=== PATIENT | female | born 1995 | race Caucasian/White ===

== ENCOUNTER 2024-12-10 16:25 | Emergency (ER) | payer OTHER ==
[~2024-12-10] VITALS: Ht 175.3 cm; Wt 94.8 kg
[2024-12-10 20:01] LABS: BASOPHILS 0.5 % (0-2); EOSINOPHILS 0.9 % (0-6); HEMATOCRIT 36.7 % (35.0-50.0); HEMOGLOBIN 12.8 g/dL (12.0-18.0); MCH 29.8 (27-36); MCHC 34.8 g/dl (30-36); MCV 85.6 fl (81-99); MONOCYTES 7.3 % (0-12); NEUTROPHILS 68.3 % (39-80); PLATELET COUNT 358 K/uL (140-440); RBC 4.29 M/ul (4.3-5.7); RDW 13.2 (10.5-15.0)
[2024-12-10 20:12] LABS: BILIRUBIN, URINE NEGATIVE (negative); BLOOD/HGB, URINE NEGATIVE (Negative); KETONE, URINE NEGATIVE (Negative); LEUK ESTERASE, URINE NEGATIVE (negative); NITRITE, URINE NEGATIVE (negative)
[2024-12-10 20:18] LABS: ALBUMIN/GLOBULIN RATIO 1.08 (1.1-2.4); BILIRUBIN, TOTAL 0.2 mg/dL (0.2-1.0); BUN/CREATININE RATIO 15.53 (6.0-28.6); CALCIUM 8.9 mg/dL (8.5-10.1); CREATININE, SERUM 1.03 mg/dL (0.55-1.02); PROTEIN, TOTAL 7.7 g/dL (6.4-8.2)
[2024-12-10] MEDS ORDERED: TRAMADOL HCL50 MG PO (21:57)
[2024-12-10] MEDS ORDERED: TRAMADOL HCL 50 MG HOME.PACK PO ONE (22:00)
[2024-12-10 22:21] VITALS: BP 98/65
== END 2024-12-10 22:23 | disposition home or self-care (01) ==
LOC: ED 16:25
PROVIDERS: Family Medicine
DX: T83.84XA Pain due to genitourinary prosthetic devices, implants and grafts, initial encounter (principal); Y76.8 Miscellaneous obstetric and gynecological devices associated with adverse incidents, not elsewhere classified
CPT/HCPCS: 36415; 76830; 76856; 80053; 81003; 85025; 99284-25; A9270

== ENCOUNTER 2025-08-04 15:47 | Emergency (ER) | payer OTHER ==
[~2025-08-04] VITALS: Ht 175.3 cm; Wt 93.5 kg
[~2025-08-04 15:47] MED LIST: TRAMADOL HCL50 MG PO
[2025-08-04 16:30] LABS: BASOPHILS 1.1 % (0.1-1.2); EOSINOPHILS 2.2 % (0.7-5.8); LYMPHOCYTES 39.2 % (19.3-51.7); MCH 28.8 PG (25.6-32.2); MCHC 33.3 g/dL (32.2-35.5); MCV 86.4 fL (79.4-94.8); MONOCYTES 7.8 % (4.7-12.5); NEUTROPHILS 49.4 % (34.0-71.1); RBC 4.27 M/uL (3.93-5.22)
[2025-08-04 16:53] LABS: BLOOD/HGB, URINE MODERATE (Negative); KETONE, URINE NEGATIVE (Negative); LEUK ESTERASE, URINE NEGATIVE (negative); NITRITE, URINE NEGATIVE (negative)
[2025-08-04 17:03] LABS: ALT (SGPT) 28.0 U/L (14-59); AST (SGOT) 17.0 U/L (15-37); GLOMERULAR FILTRATION RATE,EST 100.0 mL/min (>60); PROTEIN, TOTAL 7.6 g/dL (6.4-8.2); UREA NITROGEN 12.0 mg/dL (7-18)
[2025-08-04 17:06] LABS: BACTERIA, URINE NONE SEEN /hpf (negative); CASTS, URINE NONE SEEN \\lpf; CRYSTALS, URINE NONE SEEN (0-1+); EPITHELIAL CELLS, URINE 0 /lpf (0-1+); REFLEX CULTURE, URINE No (No)
[2025-08-04 17:35] VITALS: BP 120/58
== END 2025-08-04 17:38 | disposition home or self-care (01) ==
LOC: ED 15:47
PROVIDERS: Emergency Medicine
DX: O20.0 Threatened abortion (principal); Z3A.01 Less than 8 weeks gestation of pregnancy
CPT/HCPCS: 36415; 80053; 81001; 84702; 85025; 99284

== ENCOUNTER 2025-08-22 12:25 | Emergency (ER) | payer OTHER ==
[~2025-08-22] VITALS: Ht 175.3 cm; Wt 94.6 kg
--- OUTSIDE RECORDS SUMMARY | ~2025-08-22 | XMS | Continuity of Care Document ---
Demographics + + + | Address | [address] | | | [place] [address] | + + + | Preferred Language | Unknown | + + + | Marital Status | Never | + + + | Quaker Affiliation | Unknown | + + + | Race | White | + + + | Ethnic Group | or | + + + Author + + + | Author | [facility] | + + + | Organization | [facility] | + + + | Address | [address] | | | [place] [address] | + + + | Phone | | + + + Care Team Providers + + + + | Care Trolley Car Overhauler Name | Role | Phone | + + + + Unavailable | Unavailable | + + + + Unavailable | Unavailable | + + + + Allergies No information. Encounters No information. Functional Status No information. Immunizations No information. Medications No information. Problems + + + + | date | description | facility | + + + + | 2025-08-04 00:00 | Threatened in | [facility] | | | early | [facility] | + + + + Procedures No information. Results/Labs +--------+--------+ +---------+--------+---------+ | test | date | facility | value | unit | notes | +--------+--------+ +---------+--------+---------+ + + | Result panel 1 | + + + + + +--------+ + + | WBC # Bld | 2025-08-04 | | 9.46 | (missing) | (missing) | | Auto | 16:22:08 | [facility] | | | | + + + +--------+ + + + + | Result panel 2 | + + + + + +--------+ + + | Lymphocytes | 2025-08-04 | | 39.2 | (missing) | (missing) | | NFr Bld | 16:22:08 | [facility] | | | | | Auto [facility] | | | | + + + +--------+ + + + + | Result panel 3 | + + + + + +-------+ + + | Monocytes | 2025-08-04 | | 7.8 | (missing) | (missing) | | NFr Bld Auto | 16::08 | [facility] | | | | + + + +-------+ + + + + | Result panel 4 | + + + + + +-------+ + + | Eosinophil | 2025-08-04 | | 2.2 | (missing) | (missing) | | NFr Bld Auto | 16:22:08 | [facility] | | | | + + + +-------+ + + + + | Result panel 5 | + + + + + +-------+ + + | Basophils | 2025-08-04 | | 1.1 | (missing) | (missing) | | NFr Bld Auto | 16:22:08 | [facility] | | | | + + + +-------+ + + + + | Result panel 6 | + + + + + +--------+ + + | RBC # Bld | 2025-08-04 | | 4.27 | (missing) | (missing) | | Auto | 16:22:08 | [facility] | | | | + + + +--------+ + + + + | Result panel 7 | + + + + + +--------+ + + | Hgb | 2025-08-04 | | 12.3 | (missing) | (missing) | | Bld-mCnc | 16:22:08 | [facility] | | | | + + + +--------+ + + + + | Result panel 8 | + + + + + +------+---------+ + | Glucose | 2025-08-04 | | 91 | mg/dL | (missing) | | SerPl-mCnc | 16:22:08 | [facility] | | | | + + + +------+---------+ + + + | Result panel 9 | + + + + + +------+---------+ + | BUN | 2025-08-04 | | 12 | mg/dL | (missing) | | Iftikhar | 16:22:08 | [facility] | | | | + + + +------+---------+ + + + | Result panel 10 | + + + + + +--------+---------+ + | Creat | 2025-08-04 | | 0.82 | mg/dL | (missing) | | SerPl-mCnc | 16:22:08 | [facility] | | | | + + + +--------+---------+ + + + | Result panel 11 | + + + + + +-------+ + + | eGFRcr | 2025-08-04 | | 100 | (missing) | (missing) | | SerPlBld | 16:22:08 | [facility] | | | | | CKD-EPI 2020 | [facility] | | | | + + + +-------+ + + + + | Result panel 12 | + + + + + +---------+ + + | BUN/Creat | 2025-08-04 | | 14.63 | (missing) | (missing) | | SerPl | 16:22:08 | [facility] | | | | + + + +---------+ + + + + | Result panel 13 | + + + + + +-------+ + + | Sodium | 2025-08-04 | | 142 | (missing) | (missing) | | SerPl-sCnc | 16::08 | [facility] | | | | + + + +-------+ + + + + | Result panel 14 | + + + + + +--------+ + + | Hct VFr.DF | 2025-08-04 | | 36.9 | (missing) | (missing) | | Bld Auto | 16:22:08 | [facility] | | | | + + + +--------+ + + + + | Result panel 15 | + + + + + +-------+ + + | Potassium | 2025-08-04 | | 3.8 | (missing) | (missing) | | SerPl-sCnc | 16:22:08 | [facility] | | | | + + + +-------+ + + + + | Result panel 16 | + + + + + +-------+ + + | Chloride | 2025-08-04 | | 105 | (missing) | (missing) | | SerPl-sCnc | 16:22:08 | [facility] | | | | + + + +-------+ + + + + | Result panel 17 | + + + + + +------+ + + | CO2 | 2025-08-04 | | 29 | (missing) | (missing) | | SerPl-sCnc | 16:22:08 | [facility] | | | | + + + +------+ + + + + | Result panel 18 | + + + + + +--------+ + + | Anion Gap | 2025-08-04 | | 11.8 | (missing) | (missing) | | SerPl | 16:22:08 | [facility] | | | | | Calculated.4 | [facility] | | | | + + + +--------+ + + + + | Result panel 19 | + + + + + +-------+---------+ + | Calcium | 2025-08-04 | | 8.8 | mg/dL | (missing) | | SerPl-mCnc | 16:22:08 | [facility] | | | | + + + +-------+---------+ + + + | Result panel 20 | + + + + + +-------+ + + | Prot | 2025-08-04 | | 7.6 | (missing) | (missing) | | SerPl-mCnc | 16:22:08 | [facility] | | | | + + + +-------+ + + + + | Result panel 21 | + + + + + +-------+ + + | Albumin | 2025-08-04 | | 3.7 | (missing) | (missing) | | SerPl-mCnc | 16:22:08 | [facility] | | | | + + + +-------+ + + + + | Result panel 22 | + + + + + +-------+ + + | Globulin | 2025-08-04 | | 3.9 | (missing) | (missing) | | Ser-mCnc | 16:22:08 | [facility] | | | | + + + +-------+ + + + + | Result panel 23 | + + + + + +--------+ + + | | 2025-08-04 | | 0.95 | (missing) | (missing) | | Albumin/Glob | 16:22:08 | [facility] | | | | | SerPl | [facility] | | | | + + + +--------+ + + + + | Result panel 24 | + + + + + +-------+---------+ + | Bilirub | 2025-08-04 | | 0.3 | mg/dL | (missing) | | SerPl-mCnc | 16:22:08 | [facility] | | | | + + + +-------+---------+ + + + | Result panel 25 | + + + + + +--------+ + + | RBC Auto | 2025-08-04 | | 86.4 | (missing) | (missing) | | | 16:22:08 | [facility] | | | | + + + +--------+ + + + + | Result panel 26 | + + + + + +------+ + + | AST | 2025-08-04 | | 17 | (missing) | (missing) | | SerPl-cCnc | 16:22:08 | [facility] | | | | + + + +------+ + + + + | Result panel 27 | + + + + + +------+ + + | ALT | 2025-08-04 | | 28 | (missing) | (missing) | | SerPl-[facility] | 16:22:08 | [facility] | | | | + + + +------+ + + + + | Result panel 28 | + + + + + +------+ + + | ALP | 2025-08-04 | | 65 | (missing) | (missing) | | SerPl-cCnc | 16:22:08 | [facility] | | | | + + + +------+ + + + + | Result panel 29 | + + + + + +-----+ + + | HCG | 2025-08-04 | | 8 | (missing) | (missing) | | SerPl-sCnc | 16:22:08 | [facility] | | | | + + + +-----+ + + + + | Result panel 30 | + + + + + +--------+ + + | MCH RBC Qn | 2025-08-04 | | 28.8 | (missing) | (missing) | | Auto | 16::08 | [facility] | | | | + + + +--------+ + + + + | Result panel 31 | + + + + + +--------+ + + | MCHC RBC | 2025-08-04 | | 33.3 | (missing) | (missing) | | Auto-EntMCnc | :08 | [facility] | | | | + + + +--------+ + + + + | Result panel 32 | + + + + + +-------+ + + | Platelet # | 2025-08-04 | | 399 | (missing) | (missing) | | Bld Auto | 16:22:08 | [facility] | | | | + + + +-------+ + + + + | Result panel 33 | + + + + + +--------+ + + | Neutrophils | 2025-08-04 | | 49.4 | (missing) | (missing) | | NFr Bld | 16:22:08 | [facility] | | | | | Auto | [facility] | | | | + + + +--------+ + + + + | Result panel 34 | + + + + + + + + + | Color Ur | 2025-08-04 | | YELLOW | (missing) | (missing) | | Auto | 16:48:08 | [facility] | | | | + + + + + + + + + | Result panel 35 | + + + + + +---------+ + + | Character | 2025-08-04 | | CLEAR | (missing) | (missing) | | Ur | 16:48:08 | [facility] | | | | + + + +---------+ + + + + | Result panel 36 | + + + + + + + + + | Glucose Ur | 2025-08-04 | | NEGATIVE | (missing) | (missing) | | Ql Strip | 16:48:08 | [facility] | | | | + + + + + + + + + | Result panel 37 | + + + + + + + + + | Bilsherryub Ur | 2025-08-04 | | NEGATIVE | (missing) | (missing) | | Ql Strip | 16:48:08 | [facility] | | | | + + + + + + + + + | Result panel 38 | + + + + + + + + + | Ketones Ur | 2025-08-04 | | NEGATIVE | (missing) | (missing) | | Ql Strip | 16:48:08 | [facility] | | | | + + + + + + + + + | Result panel 39 | + + + + + +---------+ + + | Sp Gr Ur | 2025-08-04 | | 1.010 | (missing) | (missing) | | Strip | 16:48:08 | [facility] | | | | + + + +---------+ + + + + | Result panel 40 | + + + + + + + + + | Marleen Dacosta | 2025-08-04 | | MODERATE | (missing) | (missing) | | Strip | 16:48:08 | [facility] | | | | + + + + + + + + + | Result panel 41 | + + + + + +-------+ + + | pH Ur Strip | 2025-08-04 | | 6.0 | (missing) | (missing) | | | 16:48:08 | [facility] | | | | + + + +-------+ + + + + | Result panel 42 | + + + + + + + + + | Prot Ur | 2025-08-04 | | NEGATIVE | (missing) | (missing) | | Strip-mCnc | 16:48:08 | [facility] | | | | + + + + + + + + + | Result panel 43 | + + + + + + + + + | | 2025-08-04 | | NORMAL | (missing) | (missing) | | Urobilinogen | 16:48:08 | [facility] | | | | | Ur | [facility]nc | | [facility] | [facility] | [facility] | | | | + + + + + + + + + | Result panel 44 | + + + + + + + + + | Nitrite Ur | 2025-08-04 | | NEGATIVE | (missing) | (missing) | | Ql Strip | 16:48:08 | [facility] | | | | + + + + + + + + + | Result panel 45 | + + + + + + + + + | Leukocyte | 2025-08-04 | | NEGATIVE | (missing) | (missing) | | esterase Ur | 16:48:08 | [facility] | | | | | Ql Strip [facility] | | | | + + + + + + + + + | Result panel 46 | + + + + + +---------+ + + | RBC #/area | 2025-08-04 | | 12-20 | (missing) | (missing) | | UrnS HPF | 16:48:08 | [facility] | | | | + + + +---------+ + + + + | Result panel 47 | + + + + + +-------+ + + | WBC #/area | 2025-08-04 | | 0-1 | (missing) | (missing) | | UrnS HPF | 16:48:08 | [facility] | | | | + + + +-------+ + + + + | Result panel 48 | + + + + + +-----+ + + | Epi Cells | 2025-08-04 | | 0 | (missing) | (missing) | | #/area UrnS | 16:48:08 | [facility] | | | | | HPF [facility] | | | | + + + +-----+ + + + + | Result panel 49 | + + + + + + + + + | Crystals | 2025-08-04 | | NONE SEEN | (missing) | (missing) | | UrnS Micro | 16:48:08 | [facility] | | | | + + + + + + + + + | Result panel 50 | + + + + + + + + + | Bacteria | 2025-08-04 | | NONE SEEN | (missing) | (missing) | | #/area UrnS | 16:48:08 | [facility] | | | | | [facility] | | | | + + + + + + + + + | Result panel 51 | + + + + + + + + + | Casts | 2025-08-04 | | NONE SEEN | (missing) | (missing) | | #/area UrnS | 16:48:08 | [facility] | | | | | LPF [facility] | | | | + + + + + + + + + | Result panel 52 | + + + + + +------+ + + | Bacteria Ur | 2025-08-04 | | No | (missing) | (missing) | | Cult | 16:48:08 | [facility] | | | | + + + +------+ + + + + | Result panel 53 | + + + + + + + + + | Urn Spec | 2025-08-04 | | CLEAN CATCH | (missing) | (missing) | | Collect Meth | 16:48:08 | [facility] | | | | | Ur | [facility] | | | | + + + + + + + Social History + + + + | date | description | facility | + + + + | (no date) | Unknown if ever smoked | [facility] | + + + + Vital Signs + + + +---------+ | date | measurement | value | units | + + + +---------+ | 2025-08-04 00:00 | BMI | 30.4 | kg/m2 | + + + +---------+ | 2025-08-04 00:00 | BP_diastolic | 58 | mmHg | + + + +---------+ | 2025-08-04 00:00 | BP_systolic | 120 | mmHg | + + + +---------+ | 2025-08-04 00:00 | heart_rate | 57 | /min | + + + +---------+ | 2025-08-04 00:00 | height_metric | 175.26 | cm | + + + +---------+ | 2025-08-04 00:00 | height_standard | 69 | in | + + + +---------+ | 2025-08-04 00:00 | o2_saturation | 100 | % | + + + +---------+ | 2025-08-04 00:00 | respiration_rate | 14 | /min | + + + +---------+ | 2025-08-04 00:00 | | 98.7 | F | | | temperature_standar | | | | | d | | | + + + +---------+ | 2025-08-04 00:00 | weight_metric | 93.5 | kg | + + + +---------+ | 2025-08-04 00:00 | weight_standard | 206.131 | lb | + + + +---------+"
--- OUTSIDE RECORDS SUMMARY | 2025-08-22 12:32 | XMS ---
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 - 2 Visits in 30 Days CARE PROVIDERS -, [facility] Dentist: Content Specialist Current Louis PHONE: [phone] DARREN DAVISON Physician Patient Care Coordinator Current PHONE: [phone] Deysi has no Care Guidelines for this patient. EAdenike VISIT COUNT (12 MO.) [address] [place] [address] TOTAL 3 NOTE: Visits indicate total known visits. ED/UCC VISIT TRACKING (12 MO.) 08/22/2025 12:26 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
[2025-08-22] MEDS ORDERED: PRENATAL ESSEN1 EAC1 PO (12:42)
[2025-08-22] MEDS ORDERED: INOSITOL PO (12:43)
[2025-08-22 12:53] LABS: BASOPHILS 0.8 % (0.1-1.2); EOSINOPHILS 1.9 % (0.7-5.8); LYMPHOCYTES 39.1 % (19.3-51.7); MCH 29.8 PG (25.6-32.2); MCHC 34.6 g/dL (32.2-35.5); MCV 86.2 fL (79.4-94.8); MONOCYTES 9.8 % (4.7-12.5); NEUTROPHILS 48.1 % (34.0-71.1); RBC 4.29 M/uL (3.93-5.22)
[2025-08-22 13:20] LABS: ALT (SGPT) 30.0 U/L (14-59); AST (SGOT) 20.0 U/L (15-37); GLOMERULAR FILTRATION RATE,EST 119.0 mL/min (>60); PROTEIN, TOTAL 7.7 g/dL (6.4-8.2); UREA NITROGEN 12.0 mg/dL (7-18)
== END 2025-08-22 13:40 | disposition home or self-care (01) ==
LOC: ED 12:25
PROVIDERS: Emergency Medicine
DX: K62.5 Hemorrhage of anus and rectum (principal)
CPT/HCPCS: 36415; 80053; 85025; 99283